=== PATIENT | male | born 1950 ===

== ENCOUNTER 2022-08-24 09:32 | Outpatient (CLI) | payer OTHER | END 2022-08-24 09:36 | disposition home or self-care (01) | LOC: RX STUDY 09:32 | DX: R13.14 Dysphagia, pharyngoesophageal phase (principal) ==

== ENCOUNTER 2023-06-15 10:05 | Outpatient (CLI) | payer OTHER | END 2023-06-15 10:16 | disposition home or self-care (01) | LOC: MRI 10:05 | PROVIDERS: ATTEND Surgery | DX: M25.822 Other specified joint disorders, left elbow (principal) | CPT/HCPCS: 73221 ==